=== PATIENT | male | born 2005 | race Caucasian/White ===

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

== ENCOUNTER 2025-05-09 12:17 | Outpatient (CLI) | payer BC, MEDICAID, SELFPAY ==
--- NOTE | 2025-05-09 12:22 | XR_ITS ---
WS: [id number] Exam: XR chest 2V* [id number] Date/Time of Exam: 05/09/2025 12:26 PM Reason For Exam: R05.3 - Chronic cough Comparison 02/01/2016. The lungs are fully inflated and clear. Normal cardiomediastinal silhouette and regional bony elements. XR/XR chest 2V* [id number] IMPRESSION: 1. Normal chest.
== END 2025-05-09 12:18 | disposition home or self-care (01) ==
LOC: LAB 12:18
PROVIDERS: PCP Nurse Practitioner Family; Visit Provider Pediatrics Adolescent Medicine
DX: Z00.00 Encounter for general adult medical examination without abnormal findings (principal); R05.3 Chronic cough; D64.9 Anemia, unspecified; R50.9 Fever, unspecified
CPT/HCPCS: 36415; 71046; 80053; 85007; 85027; 86308; 86664; 86665; 87486; 87581; 87633